=== PATIENT | female | born 1990 | race Hispanic/Latino ===

== ENCOUNTER 2018-12-08 21:00 | Emergency (ER) | payer BC, MEDICAID ==
[~2018-12-08 21:00] MED LIST: IBUP-2070 PO; PREN1TAB80 PO
[2018-12-08] MEDS ORDERED: TETRACAINE HCL 0.5% 4 ML OPHTH SOLN ONE (21:25)
[2018-12-08] MEDS ORDERED: NA BORATE/BORIC AC/H2O/NACL 120 ML OPHTH IRRIG SOLN ONE (21:25)
[2018-12-08] MEDS ORDERED: FLUORESCEIN SODIUM 1 STRIP STRIP ONE (21:26)
== END 2018-12-08 22:24 | disposition home or self-care (01) ==
LOC: EDH 21:00
DX: S05.02XA Injury of conjunctiva and corneal abrasion without foreign body, left eye, initial encounter (principal); S05.01XA Injury of conjunctiva and corneal abrasion without foreign body, right eye, initial encounter; Z88.0 Allergy status to penicillin; X58.XXXA Exposure to other specified factors, initial encounter; Y93.89 Activity, other specified; Y92.89 Other specified places as the place of occurrence of the external cause; Y99.8 Other external cause status